=== PATIENT | male | born 1950 | race Caucasian/White ===

== ENCOUNTER 2016-11-22 10:27 | Emergency (ER) | payer OTHER, MEDICARE ==
[2016-11-22 10:39] VITALS: TEMP 98.1
--- NOTE | 2016-11-22 10:48 | EDPHY ---
H & P Stated Complaint: accidentally pulled out urinary catheter Time Seen by Provider: 11/22/16 10:34 - Personal History Current Tetanus/Diphtheria Vaccine: Yes Tetanus Vaccine Date: unknown - Medical/Surgical History Hx Asthma: No Hx Chronic Respiratory Disease: No Hx Diabetes: No Hx Cardiac Disease: No Hx Renal Disease: No Hx Cirrhosis: No Hx Alcoholism: No Hx HIV/AIDS: No Hx Splenectomy or Spleen Trauma: No Other PMH: MS. surgery for "urinary issues" - Social History Smoking Status: Former smoker Constitutional: Initial Vital Signs Temperature (C) 36.7 C 11/22/16 10:31 Heart Rate 81 11/22/16 10:31 Respiratory Rate 16 11/22/16 10:31 Blood Pressure 143/95 H 11/22/16 10:31 O2 Sat (%) 92 11/22/16 10:31 O2 Delivery Mode Room Air Allergies/Adverse Reactions: No Known Allergies Allergy (Verified 11/22/16 10:28) Home Medications: Medication Instructions Recorded Baclofen [Baclofen 20 mg (*)] 30 mg PO 06,18 #90 tab 10/10/16 Polyethylene Glycol 3350 [Miralax 17 gm PO DAILY #0 pkt 10/10/16 17 gm (*)] Sennosides [Senokot] 1 tab PO BID PRN #0 tab 10/10/16 Tamsulosin HCl [Flomax 0.4 MG (*)] 0.8 mg PO DAILY #60 cap 10/10/16 Testosterone IM [Testosterone 0 mg IM Q21D #1 vial 10/10/16 100mg/ml IM inj (*)] Medical Decision Making ED Course/Re-evaluation: CHIEF COMPLAINT: Suprapubic catheter problem HISTORY OF PRESENT ILLNESS: Patient had a suprapubic catheter placed 2 weeks ago. Everything has been draining well except that it has not drained very well this morning. In addition as he was playing with the catheter to trying get it to drain he dislodged the skin sutures holding the catheter. The catheter is still in place inside the bladder which is being held by the balloon. He denies any fevers or chills. He denies any pain. He denies any local wound infections around the catheter or any other problems. He has of daily visiting nurse from [facility] who suggested he come to the emergency department to have the catheter checked since it is not draining this morning and he pulled out. REVIEW OF SYSTEMS: A 10 point review of systems was performed and is negative with the exception of the elements mentioned in the history of present illness. PHYSICAL EXAM: HR, BP, O2 Sat, RR. Temp noted General Appearance: Alert, well hydrated, appropriate, and non-toxic appearing. Head: Atraumatic without scalp tenderness or obvious injury Eyes: Pupils equal, round, reactive to light and accommodation, EOMI, no trauma , no injection. Ears: Clear bilaterally, no perforation, normal landmarks Nose: Atraumatic, no rhinorrhea, clear. Throat: There is no erythema or exudates, no lesions, normal tonsils, mucus membranes moist. Neck: Supple, 2+ carotid upstroke, nontender, no lymphadenopathy. Respiratory: No retractions, no distress, no wheezes, and no accessory muscle use. Lungs are clear to auscultation bilaterally. Cardiovascular: Regular rate and rhythm, no murmurs, rubs, or gallops. Bilateral carotid, radial, dorsalis pedis, and posterior tibial pulses intact. Good capillary refill all extremities. Gastrointestinal: The suprapubic site is clean dry and intact, there are couple of sutures which are no longer in the skin. The catheter is in place and when I put traction on it is held in well by the balloon. It is not draining well. Otherwise, Abdomen is soft, nontender, non-distended, no masses , no rebound, no guarding, no peritoneal signs. Musculoskeletal: Normal active ROM of all extremities, atraumatic. Neurological: Alert, appropriate, and interactive. The patient has normal DTRs and non-focal cranial nerves, motor, sensory, and cerebellar exam. Skin: No rashes, good turgor, no nodules on palpation. Past medical history: Urinary tract obstruction Past surgical history: Suprapubic catheter placement Family history: Noncontributory Social history: Retired, not employed, does not abuse tobacco drugs or alcohol , has visiting nurses coming daily DIFFERENTIAL DIAGNOSIS: The differential diagnosis for the patient's urinary retention included but was not limited to medication side effect, neurologic causes, outflow obstruction including prostatic hypertrophy, suprapubic catheter blockage and infection. MEDICAL DECISION MAKING: This patient has no evidence skin infection or bladder infection. He has a Ley catheter placed suprapubic that is not draining well. We will put a new suprapubic catheter in and ensure drainage and then discharge the patient. Departure - Departure Disposition: Home, Routine, Self-Care Clinical Impression: Ley catheter problem Qualifiers: Encounter type: initial encounter Qualifier Code: (T83.9XXA) Unspecified complication of genitourinary prosthetic device, implant and graft, initial encounter Condition: Good Instructions: Ley Catheter Placement and Care (ED) Additional Instructions: Follow up with Urology appointment tomorrow Referrals: Jose Covington MD [Primary Care Provider] - As per Instructions
[2016-11-22 11:36] VITALS: BP 128/93; PULSE 90; RESP 18; O2SAT 96
== END 2016-11-22 11:20 | disposition home or self-care (01) ==
DX: T83.89XA Other specified complication of genitourinary prosthetic devices, implants and grafts, initial encounter (principal); Z87.891 Personal history of nicotine dependence; Y73.2 Prosthetic and other implants, materials and accessory gastroenterology and urology devices associated with adverse incidents